=== PATIENT | male | born 1970 | race Caucasian/White ===

== ENCOUNTER → 2016-02-26 | Outpatient (CLI) | payer OTHER | LOC: PREOP 05:55 | PROVIDERS: ATTEND Surgery | DX: Z01.818 Encounter for other preprocedural examination (principal); R19.7 Diarrhea, unspecified ==

== ENCOUNTER → 2017-09-21 | Outpatient (CLI) | payer OTHER ==
--- NOTE | 2017-09-21 09:24 | Diagnostic Imaging Report ---
Indication: Status post vasectomy on Tuesday, complaining of severe left testicular pain. The right testicle measures 3.6 x 2.2 x 2.7 cm and the left testicle measures 4.3 x 2.5 x 2.9 cm. Both testes show homogeneous echotexture. No testicular mass is seen. There is blood flow bilaterally. There is a tubular structure in the left hemiscrotum inferior to the left testicle without evidence of internal blood flow. This may contain very slow flow or be thrombosed. There is a patent varicocele on the left as well. No hydrocephalus seen. Impression: 1. No evidence of testicular mass or vascular compromise. 2. Left varicocele. A portion of this may be partially thrombosed. Dictated by: Dictated on workstation # [id number]
== END ==
LOC: RAD 07:44
PROVIDERS: ATTEND Nurse Practitioner Family
DX: I86.1 Scrotal varices (principal); Z98.52 Vasectomy status
CPT/HCPCS: 76870

== ENCOUNTER → 2017-09-28 | Outpatient (CLI) | payer OTHER ==
--- NOTE | 2017-09-28 11:17 | Diagnostic Imaging Report ---
INDICATION: Left testicular pain for two weeks. COMPARISON: Correlation is made with recent scrotal ultrasound from 09/21/2017. FINDINGS: Right testicle measures 4.0 x 2.7 x 2.9 cm and left testicle measures 3.8 x 2.1 x 3.0 cm. Testes again demonstrate homogeneous echotexture. No mass is seen. There is normal blood flow present. Varicocele on the left inferior and lateral to the testicle is again noted. There is blood flow within the varicocele. No thrombosis is seen. No hydrocele is detected. Epididymides are unremarkable. IMPRESSION: Left varicocele. No thrombosis is seen. Dictated by: Dictated on workstation # [id number]
== END ==
LOC: RAD 10:13
PROVIDERS: ATTEND Nurse Practitioner Family
DX: I86.1 Scrotal varices (principal); J30.9 Allergic rhinitis, unspecified; I10 Essential (primary) hypertension; G47.00 Insomnia, unspecified; F32.9 Major depressive disorder, single episode, unspecified; F17.200 Nicotine dependence, unspecified, uncomplicated; K64.5 Perianal venous thrombosis
CPT/HCPCS: 76870